=== PATIENT | male | born 1985 | race Caucasian/White ===

== ENCOUNTER 2017-01-23 09:29 | Day surgery (SDC) | payer BC ==
[~2017-01-23] VITALS: Ht 177.8 cm; Wt 108.9 kg
[2017-01-23] MEDS ORDERED: CEFAZOLIN 1 GM IVPB PREMIX 50 ML IV ONE (10:03)
[2017-01-23] MEDS ORDERED: fentaNYL CITRATE/PF 100 MCG/2 ML AMP IVP ONE (10:40)
[2017-01-23] MEDS ORDERED: MIDAZOLAM HCL 5 MG/5 ML VIAL IVP ONE (10:40)
[2017-01-23] MEDS ORDERED: NS IRRIG SOLN 1000 ML IR ONE (10:40)
[2017-01-23] MEDS ORDERED: SEVOFLURANE 15 MIN GAS INH ONE (10:40)
[2017-01-23] MEDS ORDERED: PROPOFOL 200MG/ 20ML VIAL (DIPRIVAN) IV ONE (10:40)
[2017-01-23] MEDS ORDERED: ONDANSETRON HCL 4 MG/2 ML VIAL IVP ONE (10:40)
[2017-01-23] MEDS ORDERED: VECURONIUM BROMIDE 10 MG/VIAL (NORCURON) IV ONE (10:40)
[2017-01-23] MEDS ORDERED: BUPIVACAINE /PF 0.25% 30 ML VIAL INJ ONE (10:40)
[2017-01-23] MEDS ORDERED: MIVACURIUM CHLORIDE 20 MG/10 ML VIAL (MIVACRON) INJ ONE (10:40)
[2017-01-23] MEDS ORDERED: LR 1,000 ML IV SCH (11:14)
[2017-01-23] MEDS ORDERED: METOCLOPRAMIDE HCL 10 MG/2 ML VIAL IVP PRN (11:15)
[2017-01-23] MEDS ORDERED: MORPHINE 4 MG/ML INJ. SYRINGE IVP PRN ×3 (11:15)
[2017-01-23] MEDS ORDERED: D5/0.45 NS 1,000 ML IV SCH (11:36)
[2017-01-23] MEDS ORDERED: HYDROmorphone 1 MG INJ. 1 MG/ML AMPUL IVP PRN (11:45)
[2017-01-23] MEDS ORDERED: HYDROcodone/ACETAMIN 5-325 MG TAB (NORCO/ VICODIN) PO PRN ×2 (11:45)
[2017-01-23] MEDS: MORPHINE 4 MG/ML INJ. SYRINGE ONE ×2 (11:55→12:10)
[2017-01-23 12:38] VITALS: BP_SYST 125
[2017-01-23] MEDS ORDERED: HYDROcodone/ACETAMIN 5-325 MG TAB (NORCO/ VICODIN) ONE (12:53)
== END 2017-01-23 13:15 | disposition home or self-care (01) ==
LOC: SDS 09:29 → SMU 09:30 → EDSEX 11:20 → SDS 13:15
PROVIDERS: ATTEND Colon & Rectal Surgery
DX: D17.23 Benign lipomatous neoplasm of skin and subcutaneous tissue of right leg (principal); E66.3 Overweight; Z68.34 Body mass index [BMI] 34.0-34.9, adult; Z79.899 Other long term (current) drug therapy; F41.9 Anxiety disorder, unspecified; E78.1 Pure hyperglyceridemia; E66.9 Obesity, unspecified; E55.9 Vitamin D deficiency, unspecified; Z98.890 Other specified postprocedural states
CPT/HCPCS: 27339; 88305; J0690; J2250; J2270; J2405; J2704; J3010; J3490 ×2; J7120; 88304